=== PATIENT | female | born 1985 | race African-American/Black ===

== ENCOUNTER 2017-10-05 14:40 | Emergency (ER) | payer OTHER ==
[~2017-10-05] VITALS: Ht 154.9 cm; Wt 53.1 kg
--- NOTE | ~2017-10-05 | EKG ---
[address] [address] ELECTROCARDIOGRAM REPORT Name: ANTONIA ROSENTHAL Room #: DEP [facility]#: [id number] Admission: 10/05/17 Attend Phys: Discharge: 10/05/17 Date of : 83 Report #: [id number] THIS REPORT FOR: //name// [facility] ED Test Date: 2017-10-05 Test Time: 15:01:17 Pat Name: ANTONIA ROSENTHAL Department: Room: Gender: F Civil Rights Representative: [id number] : 1985 Requested By: Jerry Gonzalez Order Number: [id number] MD: Eric Friend Measurements Intervals [place] Rate: 81 P: 76 [place]: 181 QRS: 23 QRSD: 86 T: 43 QT: 374 QTc: 434 Interpretive Statements Sinus rhythm Borderline T abnormalities No previous ECG available for comparison Electronically Signed On 10-06-2017 11:18:06 [employer] by Eric Friend [email or web address] <ELECTRONICALLY SIGNED> By: Eric Friend MD, [facility] 10/06/17 1118 1501 1501 Eric Friend MD, FACC /EPI
[~2017-10-05 14:40] MED LIST: ALBUTEROL INH; DARVOCET-N 1001 EACH PO; LIBRIUM10 MG PO; PREDNISONE50 MG PO; PROAIR HFA8.5 GM IH; PROVENTIL HFA6.7 G1 INH
[2017-10-05 15:19] LABS: URINE BILIRUBIN NEGATIVE (Negative); URINE BLOOD NEGATIVE (Negative); URINE COLOR YELLOW; URINE GLUCOSE-RANDOM* NEGATIVE (Negative); URINE KETONES 1+ (Negative); URINE PROTEIN (DIPSTICK) 1+ (Negative); URINE SPECIFIC GRAVITY >= 1.030 (1.003-1.035)
[2017-10-05 15:21] LABS: URINE LEUKOCYTES-REFLEX 1+ (Negative)
[2017-10-05 15:29] LABS: ABSOLUTE NEUTROPHILS 3.7 thou/uL (1.4-8.2); BASOPHILS 0.9 % (0.0-2.0); EOSINOPHILS 1.1 % (0.0-3.0); HEMATOCRIT 31.7 % (37.0-47.0); HEMOGLOBIN 10.9 gm/dL (12.0-15.0); MANUAL DIFF NO; MCH 33.1 pg (26.0-34.0); MCHC 34.4 g/dL (28.0-37.0); MCV 96.2 fL (80.0-100.0); MONOCYTES 4.9 % (1.0-8.0); PLATELET COUNT 371 thou/uL (150-400); POLYS 69.1 % (36.0-66.0); RBC 3.29 mil/uL (4.20-5.00); RDW 12.6 % (10.5-14.5); WBC 5.4 thou/uL (4.0-11.0)
[2017-10-05 15:30] LABS: AMP/METHAMP Negative (Negative); BARBITURATES Negative (Negative); BENZODIAZEPINES Negative (Negative); COCAINE POSITIVE (Negative); METHADONE Negative (Negative); OPIATES Negative (Negative); PCP Negative (Negative); THC POSITIVE (Negative)
[2017-10-05 15:33] LABS: SQUAMOUS 4-10 Moderate /LPF (0-3); URINE WBC-REFLEX >25 Many /HPF (0-5)
[2017-10-05 15:34] LABS: CASTS None Seen /LPF (None Seen); CRYSTALS None Seen /LPF (None Seen); URINE RBC None Seen /HPF (0-2)
[2017-10-05 15:37] LABS: ANION GAP 10 mmol/L (7-16); BUN 6 mg/dL (7-18); CALCIUM 8.8 mg/dL (8.5-10.1); CHLORIDE 103 mmol/L (98-107); CO2 24 mmol/L (21-32); CREATININE 0.6 mg/dL (0.6-1.0); GLUCOSE 79 mg/dL (74-106); POTASSIUM 3.6 mmol/L (3.5-5.1); SODIUM 137 mmol/L (136-145)
[2017-10-05 15:46] LABS: ALBUMIN 3.5 g/dL (3.4-5.0); ALKALINE PHOSPHATASE 57 U/L (46-116); SGOT 18 U/L (15-37); SGPT 14 U/L (30-65); TOTAL BILIRUBIN 0.2 mg/dL (<0.1-1.0); TOTAL PROTEIN 7.1 g/dL (6.4-8.2); TROPONIN-I < 0.04 ng/mL (<0.06)
[2017-10-05] MEDS ORDERED: KEFLEX500 M1 PO (17:02)
[2017-10-05 17:27] VITALS: BP 102/68
== END 2017-10-05 17:29 | disposition home or self-care (01) ==
LOC: ER 14:40
PROVIDERS: Physician Assistant
DX: O23.42 Unspecified infection of urinary tract in pregnancy, second trimester (principal); F14.10 Cocaine abuse, uncomplicated; F12.10 Cannabis abuse, uncomplicated; F10.99 Alcohol use, unspecified with unspecified alcohol-induced disorder; J45.909 Unspecified asthma, uncomplicated; F31.9 Bipolar disorder, unspecified; F43.10 Post-traumatic stress disorder, unspecified; F41.9 Anxiety disorder, unspecified; Z3A.24 24 weeks gestation of pregnancy

== ENCOUNTER 2021-09-05 05:20 | Emergency (ER) | payer OTHER ==
[~2021-09-05] VITALS: Ht 154.9 cm; Wt 47.6 kg
[~2021-09-05 05:20] MED LIST changes: +KEFLEX500 M1 PO
[2021-09-05 06:27] LABS: ABSOLUTE NEUTROPHILS 3.3 thou/uL (1.4-8.2); BASOPHILS 0.8 % (0.0-2.0); EOSINOPHILS 1.2 % (0.0-3.0); HEMATOCRIT 33.4 % (37.0-47.0); HEMOGLOBIN 11.5 gm/dL (12.0-15.0); LYMPHOCYTES 35.2 % (24.0-44.0); MCH 33.6 pg (26.0-34.0); MCHC 34.4 g/dL (28.0-37.0); MCV 97.6 fL (80.0-100.0); MONOCYTES 5.8 % (1.0-8.0); PLATELET COUNT 276 thou/uL (150-400); RBC 3.42 mil/uL (4.20-5.00); WBC 5.9 thou/uL (4.0-11.0)
[2021-09-05 06:42] LABS: ANION GAP 8 mmol/L (7-16); BUN 6 mg/dL (7-18); CHLORIDE 103 mmol/L (98-107); CO2 24 mmol/L (21-32); CREATININE 0.6 mg/dL (0.6-1.0); GLUCOSE 105 mg/dL (74-106); POTASSIUM 3.2 mmol/L (3.5-5.1); SODIUM 135 mmol/L (136-145)
[2021-09-05 06:47] LABS: URINE BILIRUBIN NEGATIVE (Negative); URINE BLOOD NEGATIVE (Negative); URINE CLARITY CLEAR; URINE COLOR YELLOW; URINE GLUCOSE-RANDOM* NEGATIVE (Negative); URINE KETONES TRACE (Negative); URINE LEUKOCYTES-REFLEX NEGATIVE (Negative); URINE NITRITE-REFLEX NEGATIVE (Negative); URINE PROTEIN (DIPSTICK) NEGATIVE (Negative); URINE SPECIFIC GRAVITY >= 1.030 (1.005-1.035)
[2021-09-05 06:48] LABS: ALBUMIN 3.6 g/dL (3.4-5.0); SALICYLATE 5.5 mg/dL (2.8-20.0); SGOT 20 U/L (15-37); SGPT 21 U/L (14-59); TOTAL BILIRUBIN 0.2 mg/dL (0.2-1.0); TOTAL PROTEIN 6.5 g/dL (6.4-8.2)
[2021-09-05 06:53] LABS: AMP/METHAMP Negative (Negative); BARBITURATES Negative (Negative); BENZODIAZEPINES Negative (Negative); COCAINE POSITIVE (Negative); METHADONE Negative (Negative); OPIATES Negative (Negative); PCP POSITIVE (Negative)
[2021-09-05 13:36] VITALS: BP 97/69
== END 2021-09-05 13:38 | disposition home or self-care (01) ==
LOC: ER 05:20
PROVIDERS: Emergency Medicine
DX: O99.321 Drug use complicating pregnancy, first trimester (principal); Z20.822 Contact with and (suspected) exposure to COVID-19; F19.10 Other psychoactive substance abuse, uncomplicated; J45.909 Unspecified asthma, uncomplicated; F31.9 Bipolar disorder, unspecified; F41.9 Anxiety disorder, unspecified; F17.200 Nicotine dependence, unspecified, uncomplicated; Z3A.01 Less than 8 weeks gestation of pregnancy; Z90.49 Acquired absence of other specified parts of digestive tract; Z79.899 Other long term (current) drug therapy